=== PATIENT | female | born 2000 | race Caucasian/White ===

== ENCOUNTER 2023-08-12 08:36 | Emergency (ER) | payer BC ==
[~2023-08-12] VITALS: Ht 172.7 cm; Wt 122.5 kg
== END 2023-08-12 12:18 | disposition home or self-care (01) ==
LOC: ER 08:38
DX: S90.122A Contusion of left lesser toe(s) without damage to nail, initial encounter (principal); X58.XXXA Exposure to other specified factors, initial encounter; Y93.89 Activity, other specified; Y92.89 Other specified places as the place of occurrence of the external cause; Y99.9 Unspecified external cause status